=== PATIENT | male | born 1965 | race Two or more races ===

== ENCOUNTER 2018-09-28 16:32 | Emergency (ER) | payer SELFPAY ==
--- NOTE | 2018-09-28 17:57 | ER Document Report ---
ED Medical Screen (RME) - General Chief Complaint: High Blood Pressure Stated Complaint: BLOOD PRESSURE ISSUES Time Seen by Provider: 09/28/18 17:53 Primary Care Provider: ADAM SANDY [Primary Care Provider] - Follow up as needed Mode of Arrival: Ambulatory Information source: Patient Notes: Patient presents emergency department with reports of high blood pressure. He is here with his . They obtained a new blood pressure machine last week. He reports history of high blood pressure and diabetes but is not currently taking any kind of medications. He denies all symptoms such as headache chest pain shortness of breath fever vomiting diarrhea. I have greeted and performed a rapid initial assessment of this patient. A comprehensive ED assessment and evaluation of the patient, analysis of test results and completion of the medical decision making process will be conducted by additional ED providers. Dictation of this chart was performed using voice recognition software; therefore, there may be some unintended grammatical errors. TRAVEL OUTSIDE OF THE [place] IN LAST 30 DAYS: No - Related Data Allergies/Adverse Reactions: No Known Allergies Allergy (Unverified 09/28/18 16:40) Physical Exam - Vital signs Vitals: Temp Pulse Resp BP Pulse Ox 98.6 F 78 18 199/105 H 97 09/28/18 16:50 09/28/18 16:50 09/28/18 16:50 09/28/18 16:50 09/28/18 16:50 Course - Vital Signs Vital signs: Temp Pulse Resp BP Pulse Ox 98.6 F 78 18 199/105 H 97 09/28/18 16:50 09/28/18 16:50 09/28/18 16:50 09/28/18 16:50 09/28/18 16:50 Doctor's Discharge - Discharge Referrals: ADAM SANDY [Primary Care Provider] - Follow up as needed
[2018-09-28 19:47] LABS: ABSOLUTE EOSINOPHILS # (AUTO) 0.4 10^3/uL (0.0-0.6); ABSOLUTE LYMPHOCYTES (AUTO) 2.7 10^3/uL (0.5-4.7); ABSOLUTE MONOCYTES (AUTO) 0.6 10^3/uL (0.1-1.4); ABSOLUTE NEUT (AUTO) 3.7 10^3/uL (1.7-8.2); BASOPHILS % (AUTO) 0.5 % (0-2); EOSINOPHILS % (AUTO) 4.9 % (0-6); HEMATOCRIT 42.7 % (37.9-51.0); HEMOGLOBIN 14.6 g/dL (13.5-17.0); LYMPHOCYTES % (AUTO) 36.2 % (13-45); MEAN CORPUSCULAR HEMOGLOBIN 30.2 pg (27.0-33.4); MEAN CORPUSCULAR HGB CONC 34.1 g/dL (32.0-36.0); MEAN CORPUSCULAR VOLUME 89 fl (80-97); MONOCYTES % (AUTO) 8.5 % (3-13); PLATELET COUNT 225 10^3/uL (150-450); RED BLOOD COUNT 4.82 10^6/uL (4.35-5.55); RED CELL DISTRIBUTION WIDTH 13.4 % (11.5-14.0); SEGMENTED NEUTROPHILS % (AUTO) 49.9 % (42-78); TOTAL CELLS COUNTED % (AUTO) 100 %; WHITE BLOOD COUNT 7.5 10^3/uL (4.0-10.5)
--- NOTE | 2018-09-28 20:04 | EKG REPORT ---
SEVERITY:- ABNORMAL ECG - SINUS RHYTHM PROBABLE LEFT ATRIAL ABNORMALITY NONSPECIFIC T ABNORMALITIES, LATERAL LEADS : Confirmed by: Nicolasa Valdovinos MD 28-Sep-2018 20:04:24
[2018-09-28 20:05] LABS: ALANINE AMINOTRANSFERASE 41 U/L (21-72); ALBUMIN 4.2 g/dL (3.5-5.0); ALKALINE PHOSPHATASE 57 U/L (38-126); ANION GAP 11 (5-19); ASPARTATE AMINO TRANSFERASE 29 U/L (17-59); BILIRUBIN,DIRECT 0.2 mg/dL (0.0-0.4); BILIRUBIN,TOTAL 0.4 mg/dL (0.2-1.3); BLOOD UREA NITROGEN 12 mg/dL (7-20); CALCIUM 9.3 mg/dL (8.4-10.2); CARBON DIOXIDE 27 mmol/L (22-30); CHLORIDE 103 mmol/L (98-107); GLUCOSE 135 mg/dL (75-110); POTASSIUM 4.2 mmol/L (3.6-5.0); SODIUM 140.7 mmol/L (137-145); TOTAL PROTEIN 6.7 g/dL (6.3-8.2)
[2018-09-28 21:59] LABS: APPEARANCE,URINE CLEAR; BILIRUBIN,URINE NEGATIVE (NEGATIVE); COLOR,URINE STRAW; GLUCOSE, URINE NEGATIVE (NEGATIVE); KETONES,URINE NEGATIVE (NEGATIVE); LEUKOCYTE ESTERASE,URINE NEGATIVE (NEGATIVE); NITRITE,URINE NEGATIVE (NEGATIVE); PROTEIN,URINE NEGATIVE (NEGATIVE); URINE SPECIFIC GRAVITY 1.008; UROBILINOGEN,URINE NEGATIVE mg/dL (<2.0)
[2018-09-28] MEDS ORDERED: HYDROCHLOROTHIAZIDE 25 MG TABLET PO ONE (23:25)
--- NOTE | 2018-09-28 23:28 | ER Document Report ---
ED Blood Pressure Problem - General Chief Complaint: High Blood Pressure Stated Complaint: BLOOD PRESSURE ISSUES Time Seen by Provider: 09/28/18 17:53 Primary Care Provider: [facility] [Provider Group] - Follow up in 1 week [facility] [Provider Group] - Follow up in 1 week Mode of Arrival: Ambulatory Notes: Patient is a 53 year old male that comes to the emergency department for chief complaint of elevated blood pressure. Patient states that he has a history of elevated blood pressure, he is to be medicated for this, he cannot remember the name of the medication previously. He denies chest pain, headache, or any other symptoms. He states he is here because he bought a blood pressure cuff routinely and checked his blood pressure. He found it was elevated and came to the emergency department. He does not have primary care. He does smoke. TRAVEL OUTSIDE OF THE [place] IN LAST 30 DAYS: No - Related Data Allergies/Adverse Reactions: No Known Allergies Allergy (Verified 09/28/18 17:54) Past Medical History - General Information source: Patient - Social History Smoking Status: Current Every Day Smoker Chew tobacco use (# tins/day): No Smoking Education Provided: Yes - <3 min Frequency of alcohol use: Occasional Drug Abuse: None Lives with: Family Family History: Reviewed & Not Pertinent Patient has suicidal ideation: No Patient has homicidal ideation: No - Past Medical History Cardiac Medical History: Reports: Hx Hypertension Endocrine Medical History: Reports: Hx Diabetes Mellitus Type 1 Renal/ Medical History: Denies: Hx Peritoneal Dialysis Surgical Hx: Negative - Immunizations Immunizations up to date: Yes Hx Diphtheria, Pertussis, Tetanus Vaccination: Yes Review of Systems - Review of Systems Constitutional: No symptoms reported EENT: No symptoms reported Cardiovascular: No symptoms reported Respiratory: No symptoms reported Gastrointestinal: No symptoms reported Genitourinary: No symptoms reported Male Genitourinary: No symptoms reported Musculoskeletal: No symptoms reported Skin: No symptoms reported Hematologic/Lymphatic: No symptoms reported Neurological/Psychological: No symptoms reported Physical Exam - Vital signs Vitals: Temp Pulse Resp BP Pulse Ox 98.6 F 78 18 199/105 H 97 09/28/18 16:50 09/28/18 16:50 09/28/18 16:50 09/28/18 16:50 09/28/18 16:50 - Notes Notes: GENERAL: Alert, interacts well. No acute distress. HEAD: Normocephalic, atraumatic. EYES: Pupils equal, round, and reactive to light. Extraocular movements intact. ENT: Oral mucosa moist, tongue midline. Oropharynx unremarkable. Airway patent. NECK: Full range of motion. Supple. Trachea midline. LUNGS: Clear to auscultation bilaterally, no wheezes, rales, or rhonchi. No respiratory distress. HEART: Regular rate and rhythm. No murmur ABDOMEN: Soft, non-tender. Non-distended. Bowel sounds present in all 4 quadrants. GENITOURINARY: Deferred EXTREMITIES: Moves all 4 extremities spontaneously. No edema, normal radial and dorsalis pedis pulses bilaterally. No cyanosis. BACK: no cervical, thoracic, lumbar midline tenderness. No saddle anesthesia, normal distal neurovascular exam. NEUROLOGICAL: Alert and oriented x3. Normal speech. Cranial nerves II through XII grossly intact. PSYCH: Normal affect, normal mood. SKIN: Warm, dry, normal turgor. No rashes or lesions noted. Course - Re-evaluation Re-evalutation: Laboratory work-up from triage reviewed, no concerning a normality, no renal failure. Patient does not have chest pain or headache. Normal neurological exam. He does have a history of essential hypertension, is out of his medication, cannot tell me his medication. I did provide him with a dose of Hydrocort thiazide, started him on this, referred him to local primary care. I discussed importance of blood pressure treatment, smoking cessation, follow-up, and strict return precautions. Patient states satisfaction and agreement. - Vital Signs Vital signs: Temp Pulse Resp BP Pulse Ox 98.1 F 58 L 17 198/126 H 98 09/29/18 00:38 09/29/18 00:38 09/29/18 00:38 09/29/18 00:38 09/29/18 00:38 - Laboratory Result Diagrams: 09/28/18 19:16 09/28/18 19:16 Laboratory results interpreted by me: 09/28/18 19:16 Glucose 135 H Discharge - Discharge Clinical Impression: Essential hypertension Condition: Stable Disposition: HOME, SELF-CARE Additional Instructions: Your laboratory work-up shows borderline blood sugar but does not show any concerning findings. Your blood pressure needs to be controlled, we have started you on a medication that you must take every day, please call the listed referral and set up a follow-up appointment so you can be seen, you may require additional medications and you will require additional laboratory studies for your care. Return immediately if you have any concerning symptoms including if you develop a headache, develop chest pain, or have any other concerning symptoms. Prescriptions: RX: Hydrochlorothiazide [Hydrodiuril 25 mg Tablet] 25 mg PO QAM #30 tablet Forms: Return to Work Referrals: [facility] [Provider Group] - Follow up in 1 week [facility] [Provider Group] - Follow up in 1 week
[2018-09-29 00:39] VITALS: BP 198/126
== END 2018-09-29 00:39 | disposition home or self-care (01) ==
LOC: ER 16:32
DX: I10 Essential (primary) hypertension (principal); F17.200 Nicotine dependence, unspecified, uncomplicated; E10.9 Type 1 diabetes mellitus without complications
CPT/HCPCS: 36415; 80053; 81001; 85025; 93005; 93010; 99283

== ENCOUNTER 2018-12-19 16:39 | Emergency (ER) | payer SELFPAY ==
[2018-12-19] MEDS ORDERED: HYDROCHLOROTHIAZIDE 25 MG TABLET PO ONE (17:10)
--- NOTE | 2018-12-19 17:16 | ER Document Report ---
HPI - HPI Time Seen by Provider: 12/19/18 17:00 Pain Level: Denies Notes: Patient is a 53-year-old male with a history of hypertension who presents complaining of tearing in his right eye, right mouth droop, and occasional trouble closing his right eye that began at 0700 this morning. Patient states that everything was normal when he went to bed. Denies drug allergies. Patient denies any tick or insect bite. He has been able to eat and drink without difficulty. He is urinating normally. He has not noticed any other areas of weakness. He did not take his blood pressure medicine today as he ran out. He otherwise feels well. No recent illness. Denies any headache, fever, head injury, neck pain, changes in vision/speech/mentation/hearing, URI, sore throat, chest pain, palpitations, syncope, cough, shortness of breath, wheeze, dyspnea, abdominal pain, nausea/vomiting/diarrhea, urinary retention, dysuria, hematuria, loss of control of bowel or bladder, numbness/tingling, saddle anesthesia, or rash. - ROS Systems Reviewed and Negative: Yes All other systems reviewed and negative Past Medical History - Social History Smoking Status: Never Smoker Chew tobacco use (# tins/day): No Frequency of alcohol use: None Drug Abuse: None Family History: Reviewed & Not Pertinent Patient has suicidal ideation: No Patient has homicidal ideation: No - Past Medical History Cardiac Medical History: Reports: Hx Hypertension Endocrine Medical History: Reports: Hx Diabetes Mellitus Type 1 Renal/ Medical History: Denies: Hx Peritoneal Dialysis - Immunizations Immunizations up to date: Yes Hx Diphtheria, Pertussis, Tetanus Vaccination: Yes Vertical Provider Document - CONSTITUTIONAL Agree With Documented VS: Yes Notes: PHYSICAL EXAMINATION: GENERAL: Well-appearing, well-nourished and in no acute distress. A&Ox4. Answers questions appropriately. HEAD: Atraumatic, normocephalic. Non-tender. EYES: Pupils equal round and reactive to light, extraocular movements intact, sclera anicteric, conjunctiva are normal. No nystagmus. The rt eyelid does not close everytime and his eye will look upward when he tries on occasion. ENT: EAC clear b/l. TM's intact b/l without erythema, fluid, or perforation. Nares patent and without discharge. oropharynx clear without exudates. No tonsilar hypertrophy or erythema. Moist mucous membranes. No sinus tenderness. NECK: Normal range of motion, supple without lymphadenopathy. No rigidity/meningismus. No midline tenderness. LUNGS: Breath sounds clear to auscultation bilaterally and equal. No wheezes rales or rhonchi. HEART: Regular rate and rhythm without murmurs, rubs, gallops. ABDOMEN: Soft, nontender, nondistended abdomen. No guarding, no rebound. Normal bowel sounds present. No CVA tenderness bilaterally. Musculoskeletal: Ext b/l: FROM to passive/active. Strength 5+/5. No deficits noted. No bony tenderness of extremities. Extremities: No cyanosis, clubbing, or edema b/l. Peripheral pulses 2+. Capillary refill less than 2 seconds. NEUROLOGICAL: Patient has noticeable mild right droop of his mouth with loss of wrinkles to the right side of his forehead. His right eye will close most of the time when he closes his left eye, but he can notice his eye looking upward when it does not close. Tongue protrudes midline otherwise. Normal speech, normal gait. Normal sensory, motor exams otherwise. Reflexes 2+ b/l. GABBI's negative. Pronator drift negative. Heel/ricci, finger/nose wnl. Romberg neg. PSYCH: Normal mood, normal affect. SKIN: Warm, Dry, normal turgor, no rashes or lesions noted. - INFECTION CONTROL TRAVEL OUTSIDE OF THE [place] IN LAST 30 DAYS: No Course - Re-evaluation Re-evalutation: 12/19/18 17:15 Patient is an afebrile, well-hydrated, 53-year-old male who presents with Nguyen's palsy of the right side. Vitals are acceptable without significant tachycardia, tachypnea, or hypoxia. PE is otherwise unremarkable for any other focal neurological deficits aside from the slight droop of the right side of the mouth, loss of wrinkles to the right side of the forehead, and incomplete closure of the right eyelid on occasion. Patient also has tearing noted to the right eye. GCS 15, cranial nerves otherwise intact. No further work-up or i maging warranted at this time. I did review with Dr. Felix who had already briefly eval'd the patient upon arrival who agrees with dispo/plan. I will send him home with prednisone as well as valacyclovir. He is House-Brackmann grade 4. Low suspicion for any acute glaucoma, temporal arteritis, meningitis, intracranial hemorrhage, ischemic stroke, or fracture at this time. Patient is aware that his condition can change from initial presentation and that he needs to monitor symptoms closely for any acute changes. Patient was given blood pressure medicine p.o. today. Prescription refill sent as well. Reviewed the risk benefits of elevated blood pressure and increased risk of cardiovascular complications. Recheck with your PCM this week. Schedule consult with neurology. Return to the ED with any other worsening/concerning symptoms. Patient is in agreement. - Vital Signs Vital signs: Temp Pulse Resp BP Pulse Ox 97.7 F 89 16 212/119 H 97 12/19/18 16:46 12/19/18 16:46 12/19/18 16:46 12/19/18 16:46 12/19/18 16:46 Discharge - Discharge Clinical Impression: Nguyen's palsy Condition: Stable Disposition: HOME, SELF-CARE Instructions: Nguyen's Palsy ([facility]) Additional Instructions: Rest, Ice/cool compress Tylenol/ibuprofen as needed Light stretches daily Strength exercises as able Moist heat and massage may help F/u with your PCP in 3-5 days for a recheck Schedule consult with Neurology Return to the ED with any worsening symptoms and/or development of fever, headache, changes in behavior/mentation/vision/speech, chest pain, palpitations, syncope, shortness of breath, trouble breathing, abdominal pain, n/v/d, blood in stool/urine, loss of control of bowel/bladder, urinary retention, muscle weakness/paralysis, saddle anesthesia, numbness/tingling, or other worsening symptoms that are concerning to you. Prescriptions: Hydrochlorothiazide [Hydrodiuril 25 mg Tablet] 25 mg PO QAM #30 tablet Prednisone [Deltasone 20 mg Tablet] 3 tab PO DAILY 7 Days tablet Valacyclovir HCl [Valacyclovir] 1,000 mg PO TID #21 tablet Forms: Elevated Blood Pressure Referrals: FELICITY REAL MD [NO LOCAL MD] - Follow up in 1 week
[2018-12-19 17:32] VITALS: BP 205/119
== END 2018-12-19 17:32 | disposition home or self-care (01) ==
LOC: ER 16:39
DX: G51.0 Bell's palsy (principal); I10 Essential (primary) hypertension; E10.9 Type 1 diabetes mellitus without complications
CPT/HCPCS: 99283